=== PATIENT | male | born 1980 | race Caucasian/White ===

== ENCOUNTER 2018-01-25 17:26 | Emergency (ER) | payer OTHER ==
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
[2018-01-25] MEDS ORDERED: HYDROMORPHONE HCL 1 MG/ML SYRINGE IVP ONE (18:00)
[2018-01-25 18:24] LABS: PLATELET COUNT, AUTOMATED 244 K/uL (150-450)
[2018-01-25] MEDS ORDERED: DIPHTH/TETANUS/ACEL. PERTUSSIS IM ONLY ONE (19:00)
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
[2018-01-25] MEDS ORDERED: LIDOCAINE 2% VISC SLN 15ML UDC PO ONE (19:20)
[2018-01-25] MEDS ORDERED: CEPHALEXIN 500 MG CAP TH 2 CAP/BOTTLE PO ONE (19:35)
[2018-01-25] MEDS ORDERED: CEPH500T7 PO (19:57)
[2018-01-25 20:00] VITALS: BP 134/97
== END 2018-01-25 20:20 | disposition home or self-care (01) ==
LOC: ER 17:36
DX: S93.401A Sprain of unspecified ligament of right ankle, initial encounter (principal); S40.812A Abrasion of left upper arm, initial encounter; S40.811A Abrasion of right upper arm, initial encounter; S80.812A Abrasion, left lower leg, initial encounter; S80.811A Abrasion, right lower leg, initial encounter; V20.0XXA Motorcycle driver injured in collision with pedestrian or animal in nontraffic accident, initial encounter
CPT/HCPCS: 73564; 73610; 85025; 90471; 90715; 96374; 99284; J1170; 82040; 82247; 82310; 82374; 82435; 82565; 82947; 84075; 84132; 84155; 84295; 84450; 84460; 84520

== ENCOUNTER → 2018-05-14 | Outpatient (CLI) | payer SELFPAY ==
[~2018-05-14] MED LIST: ASPI1TAB35 PO; CEPH500T7 PO
[2018-05-14 15:46] LABS: PLATELET COUNT, AUTOMATED 254 K/uL (150-450)
[2018-05-14 16:04] LABS: LDL CHOLESTEROL 102 mg/dl
== END ==
LOC: LAB 15:18
PROVIDERS: ATTEND Internal Medicine
DX: R41.82 Altered mental status, unspecified (principal); R47.01 Aphasia; R20.0 Anesthesia of skin
CPT/HCPCS: 36415; 81001; 82040; 82247; 82310; 82374; 82435; 82465; 82565; 82607; 82728; 82947; 83718; 84075; 84132; 84155; 84295; 84443; 84450; 84460; 84478; 84520; 85025

== ENCOUNTER → 2018-05-20 | Outpatient (CLI) | payer SELFPAY ==
[~2018-05-20] MED LIST changes: +GADOBENATE 529MG/1ML 15ML VIAL IVP ONE
--- NOTE | 2018-05-20 08:27 | RADIOLOGY IMAGING REPORT ---
FACILITY: [facility] PATIENT NAME: Anderson Garcia : 1980 MR: [id number] V: [id number] EXAM DATE: ORDERING PHYSICIAN: JAYCE HERMOSILLO TECHNOLOGIST: Location: [facility] [place] Patient: Anderson Garcia : 1980 Visit/Account:[id number] Date of Sevice: 05/20/2018 Exam type: ORBITS FOREIGN BODY 1 VIEW History: Pre-MRI screening Comparison: None. Findings: No radiopaque metallic foreign bodies project over the orbits IMPRESSION: 1. No radiopaque metallic foreign bodies project over the orbits Report Dictated By: Shy Brooks MD at 05/20/2018 8:21 AM Report E-Signed By: Shy Brooks MD at 05/20/2018 8:22 AM [id number]:[email or web address]
--- NOTE | 2018-05-20 09:38 | RADIOLOGY IMAGING REPORT ---
FACILITY: [facility] PATIENT NAME: Anderson Garcia : 1980 MR: [id number] V: [id number] EXAM DATE: ORDERING PHYSICIAN: JAYCE HERMOSILLO TECHNOLOGIST: Location: [facility] [place] Patient: Anderson Garcia : 1980 Visit/Account:[id number] Date of Sevice: 05/20/2018 Study: MRI of the brain without and with gadolinium contrast. Indication: Impaired memory, aphasia, hand numbness Comparison study: None Contrast used: 15 mL MultiHance gadolinium contrast Technique: Multiplanar MRI sequences were obtained through the brain before and after the administrat ion of gadolinium contrast. The examination demonstrates no evidence of acute intracranial hemorrhage. There is no evidence of ex tra-axial collection or hydrocephalus. There is no abnormal signal identified within the brain parenchyma. The pituitary gland is unremarkable in appearance. There is no evidence of abnormality of the pineal gland. A diffusion-weighted sequence was performed and demonstrates no evidence of active ischemia. There is no evidence of active infarct The orbits are unremarkable. The paranasal sinuses are unremarkable Following the administration of gadolinium contrast, there is no abnormal intracranial contrast enhan cement. IMPRESSION:Unremarkable MRI of the brain without and with intravenous contrast. Report Dictated By: Raman Gómez at 05/20/2018 9:31 AM Report E-Signed By: Raman Gómez at 05/20/2018 9:33 AM WSN:[id number]
== END ==
LOC: MRI 00:39
PROVIDERS: ATTEND Internal Medicine
DX: R47.01 Aphasia (principal); G44.229 Chronic tension-type headache, not intractable; R20.0 Anesthesia of skin; R41.3 Other amnesia
CPT/HCPCS: 70030; 70553; A9577